=== PATIENT | female | born 1985 | race Caucasian/White ===

== ENCOUNTER 2016-11-30 03:30 | Inpatient (IN) | payer OTHER ==
[~2016-11-30] VITALS: Ht 167.6 cm; Wt 59.3 kg
[2016-11-30 04:50] LABS: AMPHETAMINE QUAL UR POSITIVE (NEG <=1000)
[2016-11-30 04:51] LABS: BASOPHIL % 0.1 % (0-2); CALCIUM 9.6 mg/dL (8.5-10.1); CARBON DIOXIDE 23.8 mmol/L (21-32); CHLORIDE SERUM 103 mmol/L (98-107); CREATININE SERUM 0.8 mg/dL (0.6-1.0); GFR1 > 60 mL/min; GLUCOSE SERUM 110 mg/dL (74-106); PLATELET COUNT 291 x10^3mcL (130-400); POTASSIUM SERUM 3.5 mmol/L (3.5-5.1); RED CELL DISTRIBUTION WIDTH 13.4 % (11.5-14.5); SODIUM SERUM 138 mmol/L (136-145)
[2016-11-30 04:57] LABS: ALBUMIN 4.7 g/dL (3.4-5.0); ALKALINE PHOSPHATASE 58 U/L (46-116); ALT/SGPT 26 U/L (14-59); AST/SGOT 21 U/L (15-37); BILIRUBIN TOTAL 0.5 mg/dL (0.20-1.00)
[2016-11-30] MEDS ORDERED: RISPERIDONE1 MG PO (23:14)
[2016-11-30] MEDS ORDERED: TOPAMAX25 MG PO (23:14)
[2016-11-30] MEDS ORDERED: ATIVAN0.5 M1 PO (23:15)
[2016-11-30 23:52] LABS: CHOLESTEROL/HDL RATIO 1.7; MAGNESIUM 2.2 mg/dL (1.8-2.4); PHOSPHOROUS 2.8 mg/dL (2.5-4.9)
[2016-12-01 00:02] VITALS: BP 141/31
[2016-12-01 00:05] LABS: FREE T4 0.97 ng/dL (0.76-1.46); FREE THYROXINE INDEX 2.6 ug/dL (1.4-4.5); T4(THYROXINE) 7.6 ug/dL (4.7-13.3)
[2016-12-01 00:57] LABS: T3 TOTAL 0.92 ng/mL
[2016-12-01 04:25] VITALS: BP 113/73
[2016-12-01 05:45] LABS: BASOPHIL % 0.4 % (0-2); PLATELET COUNT 275 x10^3mcL (130-400); RED CELL DISTRIBUTION WIDTH 13.5 % (11.5-14.5)
[2016-12-01 06:02] LABS: CALCIUM 9.5 mg/dL (8.5-10.1); CARBON DIOXIDE 22.4 mmol/L (21-32); CHLORIDE SERUM 106 mmol/L (98-107); CREATININE SERUM 0.7 mg/dL (0.6-1.0); GFR1 > 60 mL/min; GLUCOSE SERUM 88 mg/dL (74-106); POTASSIUM SERUM 3.5 mmol/L (3.5-5.1); SODIUM SERUM 140 mmol/L (136-145)
[2016-12-01 07:31] LABS: microscopic required? NO
[2016-12-01 08:00] VITALS: BP 104/61
[2016-12-01 08:35] LABS: UA SPECIFIC GRAVITY >=1.030 (1.005-1.035); urine erythrocyte NEGATIVE (NEGATIVE)
[2016-12-01 11:19] VITALS: Ht 167.6 cm; Wt 59.3 kg
[2016-12-01 12:43] VITALS: BP 105/54
[2016-12-01 15:58] VITALS: BP 112/60
[2016-12-01 19:30] VITALS: BP 100/68
[2016-12-02 00:10] VITALS: BP 101/69
[2016-12-02 03:10] VITALS: BP 105/44
[2016-12-02 04:33] LABS: BASOPHIL % 0.2 % (0-2); PLATELET COUNT 255 x10^3mcL (130-400); RED CELL DISTRIBUTION WIDTH 13.4 % (11.5-14.5)
[2016-12-02 04:53] LABS: ALKALINE PHOSPHATASE 43 U/L (46-116); ALT/SGPT 5 U/L (14-59); AST/SGOT 18 U/L (15-37); BILIRUBIN TOTAL 0.51 mg/dL (0.20-1.00); CALCIUM 8.5 mg/dL (8.5-10.1); CARBON DIOXIDE 24.5 mmol/L (21-32); CHLORIDE SERUM 113 mmol/L (98-107); CREATININE SERUM 0.8 mg/dL (0.6-1.0); FREE T4 0.84 ng/dL (0.76-1.46); GFR1 > 60 mL/min; GLUCOSE SERUM 84 mg/dL (74-106); SODIUM SERUM 145 mmol/L (136-145)
[2016-12-02 04:56] LABS: ALBUMIN 3.2 g/dL (3.4-5.0); TOTAL PROTEIN, SERUM 5.8 g/dL (6.4-8.2)
[2016-12-02 07:33] VITALS: BP 111/74
[2016-12-02 15:27] VITALS: BP 106/65
[2016-12-03 00:42] VITALS: BP 108/62
[2016-12-03 03:43] VITALS: BP 112/85
[2016-12-03 07:10] VITALS: BP 104/73
[2016-12-03] MEDS ORDERED: TOPAMAX25 MG PO (09:47)
[2016-12-03] MEDS ORDERED: RISPERIDONE1 MG PO (09:47)
[2016-12-03 09:50] VITALS: BP 118/76
== END 2016-12-03 10:55 | disposition home or self-care (01) | DRG 917 ==
LOC: ED 03:30 → IC 21:27
PROVIDERS: Emergency Medicine; ADMIT Family Medicine
DX: T43.621A Poisoning by amphetamines, accidental (unintentional), initial encounter (principal); G92 Toxic encephalopathy; K72.01 Acute and subacute hepatic failure with coma; R45.851 Suicidal ideations; Z68.1 Body mass index [BMI] 19.9 or less, adult; T40.7X1A Poisoning by cannabis (derivatives), accidental (unintentional), initial encounter; F15.129 Other stimulant abuse with intoxication, unspecified; F12.129 Cannabis abuse with intoxication, unspecified; F17.210 Nicotine dependence, cigarettes, uncomplicated; F90.9 Attention-deficit hyperactivity disorder, unspecified type; F31.9 Bipolar disorder, unspecified; Y92.59 Other trade areas as the place of occurrence of the external cause; Z59.0 Homelessness
CPT/HCPCS: 83880; 84439; C9113; G0480; J1630; J3490; J7030; Q0092